=== PATIENT | male | born 1975 | race African-American/Black ===

== ENCOUNTER 2021-02-21 13:13 | Emergency (ER) | payer MEDICAID, MEDICARE ==
[2021-02-21 13:49] LABS: Actual Bicarbonate (HCO3v) 25 mEq/L (22-28); Base Excess -2.2 mEq/L (-2.0 to +3.0); Calcium, Ionized (venous) 1.24 mmol/L (1.16-1.32); Chloride (VBG) 99 mmol/L (98-106); Hemoglobin (Hb) 13.9 g/dL (13.1-17.2); Potassium (VBG) 3.85 mmol/L (3.70-5.30); Puncture Site Other Site; RapidComm Collect By CBN; Sodium 142.6 mmol/L (133-146)
[2021-02-21 13:51] LABS: #Monocytes 0.9 10x3/uL (0.0-1.1); #Neutrophils 5.2 10x3/uL (1.5-8.4); %Basophils 0.5 % (0.0-2.0); %Eosinophils 0.5 % (0.0-6.0); %Lymphocytes 30.6 % (18.0-47.0); %Monocytes 9.7 % (0.0-10.0); %Neutrophils 58.5 % (40.0-75.0); Hemoglobin 12.6 g/dL (13.5-17.5); Mean Corpuscular HGB CONC 32.5 g/dL (32.0-36.0); Mean Corpuscular Hemoglobin 25.2 pg (27.0-33.0); Mean Corpuscular Volume 77.6 fl (81.2-95.1); Mean Platelet Volume 12.1 fl (7.4-10.4); Platelet Count 403 10x3/uL (150-450); RBC Distribution Width 13.5 % (11.5-14.5); White Blood Cell (WBC) Count 8.8 10x3/uL (3.5-10.5)
[2021-02-21 14:02] LABS: Phosphorus 5.6 mg/dL (2.3-4.7)
[2021-02-21 14:04] LABS: ALT (SGPT) 43 U/L (8-55); AST (SGOT) 20 U/L (5-34); Albumin 4.5 g/dL (3.5-5.0); Alkaline Phosphatase 140 U/L (40-110); Anion Gap 22 mmol/L (10-20); BUN (Urea Nitrogen) 34 mg/dL (8.9-20.6); Bilirubin, Total 0.5 mg/dL (0.2-1.2); Calc. Creatinine Clearance 0 mL/min (70-130); Calcium 10.4 mg/dL (7.8-10.44); Carbon Dioxide 25 mmol/L (22-29); Chloride 99 mmol/L (98-107); Globulin 2.9 g/dL (2.4-3.5); Lipase 37 U/L (8-78); Potassium 3.9 mmol/L (3.5-5.1); Protein, Total 7.4 g/dL (6.0-8.3); Sodium 142 mmol/L (136-145)
[2021-02-21] MEDS ORDERED: INSULIN REGULAR IN 0.9 % NACL 100 UNIT/100 ML BAG ONE (14:05)
[2021-02-21] MEDS ORDERED: Insulin Regular 300 UNITS/3 ML VIAL ONE (14:05)
[2021-02-21] MEDS ORDERED: Ondansetron PF 4 MG/2 ML Vial ONE (14:06)
[2021-02-21 14:10] LABS: Acetaminophen Less than 6.0 mcg/mL (10.0-30.0); Alcohol Less than 10 mg/dL (Less than 10); Salicylate Less than 8.0 mg/dL (15.0-30.0)
[2021-02-21] MEDS ORDERED: NS 0.9% w/ 20 MEQ KCL 1,000 ML ONE (14:21)
[2021-02-21 14:25] LABS: Glucose 746 mg/dL (70-105)
[2021-02-21 15:30] LABS: Bilirubin Neg (Negative); Blood, Urine 10 (Negative); Clarity Clear (Clear); Glucose, Urine (Dipstick) >=1000 mg/dL (Negative); Ketone, Urine 15 mg/dL (Negative); Leukocyte Negative (Negative); Nitrite Negative (Negative); Protein, Urine (Dipstick) 30 mg/dl (Neg-Trace); Specific Gravity, Urine 1.015 (1.002-1.036); Urobilinogen Normal mg/dL (Less than 2)
[2021-02-21 15:38] LABS: Amphetamine Not Detected (NotDetected); Barbiturates Screen Not Detected (NotDetected); Benzodiazepine Screen Not Detected (NotDetected); Cocaine Metabolite Screen Not Detected (NotDetected); Methadone Not Detected (NotDetected); Methamphetamine Not Detected (NotDetected); Opiate Screen Not Detected (NotDetected); Oxycodone Screen Not Detected (NotDetected); Phencyclidine (PCP) Detected (NotDetected); THC/Cannabinoid Screen Not Detected (NotDetected); Tricyclic Screen Not Detected (NotDetected)
[2021-02-21 15:39] LABS: Bacteria/HPF None Seen HPF (None Seen); RBC/HPF 0-3 HPF (0-3); Squamous Epithelial 0-3 HPF (0-3); WBC/HPF 0-3 HPF (0-3)
[2021-02-21 16:05] LABS: SARS-CoV-2 NAA Rapid Test Not Detected (NotDetected)
== END 2021-02-21 15:30 | disposition short-term general hospital (02) ==
LOC: CSHERS 13:13
DX: E11.10 Type 2 diabetes mellitus with ketoacidosis without coma (principal); I24.9 Acute ischemic heart disease, unspecified; N17.9 Acute kidney failure, unspecified; I48.91 Unspecified atrial fibrillation; Z79.4 Long term (current) use of insulin; E11.9 Type 2 diabetes mellitus without complications; I10 Essential (primary) hypertension; F17.210 Nicotine dependence, cigarettes, uncomplicated
CPT/HCPCS: 0240U; 36416; 71045; 80053; 80306; 80307; 81003; 81015; 82010; 82805; 83605; 83690; 83735; 83930; 84100; 84484; 85025; 93005; 96365; 96368; 96375; 96376; J1815; J2405; J3480

== ENCOUNTER 2021-03-10 12:24 | Emergency (ER) | payer MEDICAID, OTHER ==
[2021-03-10] MEDS ORDERED: Lidocaine 1% w/Epinephrine 1:100K 20 ML VIAL ONE (13:34)
[2021-03-10] MEDS ORDERED: Boostrix 0.5 ML (Tdap) VIAL ONE (13:56)
[2021-03-10 15:25] LABS: #Eosinphils 0.2 10x3/uL (0.0-0.5); #Monocytes 0.9 10x3/uL (0.0-1.1); #Neutrophils 8.4 10x3/uL (1.5-8.4); %Basophils 0.4 % (0.0-2.0); %Eosinophils 1.4 % (0.0-6.0); %Lymphocytes 14.1 % (18.0-47.0); %Monocytes 7.6 % (0.0-10.0); %Neutrophils 75.8 % (40.0-75.0); Hemoglobin 10.3 g/dL (13.5-17.5); Mean Corpuscular HGB CONC 31.9 g/dL (32.0-36.0); Mean Corpuscular Hemoglobin 24.5 pg (27.0-33.0); Mean Corpuscular Volume 76.7 fl (81.2-95.1); Mean Platelet Volume 10.9 fl (7.4-10.4); Platelet Count 365 10x3/uL (150-450); RBC Distribution Width 13.4 % (11.5-14.5); Red Blood Cell (RBC) Count 4.21 10x6/uL (4.32-5.72); White Blood Cell (WBC) Count 11.1 10x3/uL (3.5-10.5)
[2021-03-10 15:37] LABS: ALT (SGPT) 21 U/L (8-55); AST (SGOT) 8 U/L (5-34); Albumin 3.6 g/dL (3.5-5.0); Alkaline Phosphatase 139 U/L (40-110); Anion Gap 16 mmol/L (10-20); BUN (Urea Nitrogen) 16 mg/dL (8.9-20.6); Bilirubin, Total 0.4 mg/dL (0.2-1.2); Calc. Creatinine Clearance 0 mL/min (70-130); Calcium 9.2 mg/dL (7.8-10.44); Carbon Dioxide 25 mmol/L (22-29); Chloride 103 mmol/L (98-107); Globulin 3.3 g/dL (2.4-3.5); Glucose 512 mg/dL (70-105); Potassium 4.7 mmol/L (3.5-5.1); Protein, Total 6.9 g/dL (6.0-8.3); Sodium 139 mmol/L (136-145)
== END 2021-03-10 15:26 | disposition home or self-care (01) ==
LOC: CSHERS 12:24
DX: L02.811 Cutaneous abscess of head [any part, except face] (principal); E11.9 Type 2 diabetes mellitus without complications; I10 Essential (primary) hypertension; I48.91 Unspecified atrial fibrillation; F17.210 Nicotine dependence, cigarettes, uncomplicated; Z23 Encounter for immunization
CPT/HCPCS: 10060; 36415; 36416; 80053; 83605; 85025; 90471; 90715; 94760

== ENCOUNTER 2021-04-07 16:43 | Emergency (ER) | payer OTHER ==
[2021-04-07 17:38] LABS: #Eosinphils 0.2 10x3/uL (0.0-0.5); #Monocytes 0.9 10x3/uL (0.0-1.1); #Neutrophils 9.7 10x3/uL (1.5-8.4); %Basophils 0.3 % (0.0-2.0); %Eosinophils 1.2 % (0.0-6.0); %Lymphocytes 9.2 % (18.0-47.0); %Monocytes 7.7 % (0.0-10.0); Hemoglobin 10.7 g/dL (13.5-17.5); Mean Corpuscular HGB CONC 32.3 g/dL (32.0-36.0); Mean Corpuscular Hemoglobin 24.7 pg (27.0-33.0); Mean Corpuscular Volume 76.4 fl (81.2-95.1); Mean Platelet Volume 11.3 fl (7.4-10.4); Platelet Count 351 10x3/uL (150-450); RBC Distribution Width 13.6 % (11.5-14.5); Red Blood Cell (RBC) Count 4.33 10x6/uL (4.32-5.72)
[2021-04-07 17:59] LABS: THC/Cannabinoid Screen Not Detected (NotDetected)
[2021-04-07 18:00] LABS: Amphetamine Not Detected (NotDetected); Barbiturates Screen Not Detected (NotDetected); Benzodiazepine Screen Not Detected (NotDetected); Cocaine Metabolite Screen Not Detected (NotDetected); Methadone Not Detected (NotDetected); Methamphetamine Not Detected (NotDetected); Opiate Screen Not Detected (NotDetected); Oxycodone Screen Not Detected (NotDetected); Phencyclidine (PCP) Detected (NotDetected); Tricyclic Screen Not Detected (NotDetected)
[2021-04-07 18:01] LABS: Acetaminophen Less than 6.0 mcg/mL (10.0-30.0); Alcohol Less than 10 mg/dL (Less than 10); Salicylate Less than 8.0 mg/dL (15.0-30.0)
[2021-04-07 18:02] LABS: ALT (SGPT) 19 U/L (8-55); AST (SGOT) 39 U/L (5-34); Albumin 3.6 g/dL (3.5-5.0); Alkaline Phosphatase 153 U/L (40-110); Anion Gap 15 mmol/L (10-20); BUN (Urea Nitrogen) 10 mg/dL (8.9-20.6); Bilirubin, Total 0.6 mg/dL (0.2-1.2); Calc. Creatinine Clearance 0 mL/min (70-130); Carbon Dioxide 29 mmol/L (22-29); Chloride 97 mmol/L (98-107); Glucose 482 mg/dL (70-105); Potassium 4.3 mmol/L (3.5-5.1); Protein, Total 6.6 g/dL (6.0-8.3); Sodium 137 mmol/L (136-145)
== END 2021-04-07 19:02 | disposition home or self-care (01) ==
LOC: CSHERS 16:43
DX: F16.10 Hallucinogen abuse, uncomplicated (principal); E11.9 Type 2 diabetes mellitus without complications; I10 Essential (primary) hypertension; I48.91 Unspecified atrial fibrillation; F17.210 Nicotine dependence, cigarettes, uncomplicated; V89.2XXA Person injured in unspecified motor-vehicle accident, traffic, initial encounter
CPT/HCPCS: 36415; 36416; 70450; 72125; 80053; 80306; 80307; 84484; 85025; 93005; G0390

== ENCOUNTER 2021-09-28 05:50 | Emergency (ER) | payer OTHER ==
[2021-09-28 07:08] LABS: #Eosinphils 0.1 10x3/uL (0.0-0.5); #Monocytes 0.4 10x3/uL (0.0-1.1); #Neutrophils 3.5 10x3/uL (1.5-8.4); %Basophils 0.3 % (0.0-2.0); %Eosinophils 0.8 % (0.0-6.0); %Lymphocytes 33.9 % (18.0-47.0); %Monocytes 5.8 % (0.0-10.0); %Neutrophils 58.9 % (40.0-75.0); Hemoglobin 11.2 g/dL (13.5-17.5); Mean Corpuscular HGB CONC 31.7 g/dL (32.0-36.0); Mean Corpuscular Hemoglobin 25.1 pg (27.0-33.0); Mean Corpuscular Volume 79.1 fl (81.2-95.1); Mean Platelet Volume 12.1 fl (7.4-10.4); Platelet Count 315 10x3/uL (150-450); RBC Distribution Width 12.9 % (11.5-14.5); Red Blood Cell (RBC) Count 4.46 10x6/uL (4.32-5.72)
[2021-09-28 07:15] LABS: ALT (SGPT) 30 U/L (8-55); AST (SGOT) 18 U/L (5-34); Acetaminophen Less than 6.0 mcg/mL (10.0-30.0); Albumin 4.1 g/dL (3.5-5.0); Alcohol Less than 10 mg/dL (Less than 10); Alkaline Phosphatase 126 U/L (40-110); Anion Gap 16 mmol/L (10-20); BUN (Urea Nitrogen) 25 mg/dL (8.9-20.6); Bilirubin, Total 0.4 mg/dL (0.2-1.2); Calc. Creatinine Clearance 0 mL/min (70-130); Calcium 9.3 mg/dL (7.8-10.44); Carbon Dioxide 26 mmol/L (22-29); Chloride 104 mmol/L (98-107); Globulin 3.2 g/dL (2.4-3.5); Glucose 432 mg/dL (70-105); Potassium 4.4 mmol/L (3.5-5.1); Protein, Total 7.3 g/dL (6.0-8.3); Salicylate Less than 8.0 mg/dL (15.0-30.0); Sodium 142 mmol/L (136-145)
[2021-09-28] MEDS ORDERED: Insulin Regular 300 UNITS/3 ML VIAL ONE (07:33)
== END 2021-09-28 08:40 | disposition home or self-care (01) ==
LOC: CSHERS 05:50
DX: E11.65 Type 2 diabetes mellitus with hyperglycemia (principal); I10 Essential (primary) hypertension; I48.91 Unspecified atrial fibrillation; F17.210 Nicotine dependence, cigarettes, uncomplicated
CPT/HCPCS: 36416; 80053; 80307; 85025; 93005; 93010; 96374; J1815

== ENCOUNTER 2022-01-23 10:09 | Observation (INO) | payer OTHER ==
[2022-01-23 10:45] LABS: ALT (SGPT) 9 U/L (8-55); AST (SGOT) 8 U/L (5-34); Albumin 3.9 g/dL (3.5-5.0); Alkaline Phosphatase 134 U/L (40-110); Anion Gap 18 mmol/L (10-20); BUN (Urea Nitrogen) 23 mg/dL (8.9-20.6); Bilirubin, Total 0.3 mg/dL (0.2-1.2); Calc. Creatinine Clearance 0 mL/min (70-130); Calcium 9.4 mg/dL (7.8-10.44); Carbon Dioxide 25 mmol/L (22-29); Chloride 97 mmol/L (98-107); Potassium 4.4 mmol/L (3.5-5.1); Protein, Total 6.9 g/dL (6.0-8.3); Sodium 136 mmol/L (136-145)
[2022-01-23 10:46] LABS: #Eosinphils 0.1 10x3/uL (0.0-0.5); #Monocytes 0.6 10x3/uL (0.0-1.1); #Neutrophils 3.9 10x3/uL (1.5-8.4); %Basophils 0.5 % (0.0-2.0); %Monocytes 7.8 % (0.0-10.0); %Neutrophils 53.4 % (40.0-75.0); Hemoglobin 11.3 g/dL (13.5-17.5); Mean Corpuscular HGB CONC 32.4 g/dL (32.0-36.0); Mean Corpuscular Hemoglobin 24.8 pg (27.0-33.0); Mean Corpuscular Volume 76.5 fl (81.2-95.1); Mean Platelet Volume 11.5 fl (7.4-10.4); Platelet Count 372 10x3/uL (150-450); RBC Distribution Width 13.2 % (11.5-14.5); Red Blood Cell (RBC) Count 4.56 10x6/uL (4.32-5.72); White Blood Cell (WBC) Count 7.3 10x3/uL (3.5-10.5)
[2022-01-23 11:00] LABS: Glucose 655 mg/dL (70-105)
[2022-01-23 11:22] LABS: Microcytosis SLIGHT = 6-15 cells (100X) (0-5/hpf)
[2022-01-23 11:23] LABS: Platelet Clumps SLIGHT; Platelet Morphology Comment Appears Adequate
[2022-01-23] MEDS ORDERED: Acetaminophen 325 MG TAB PO PRN (13:30)
[2022-01-23] MEDS ORDERED: Ondansetron PF 4 MG/2 ML Vial IVP PRN (13:30)
[2022-01-23] MEDS ORDERED: Acetaminophen 650 MG Suppository PR PRN (13:30)
[2022-01-23] MEDS ORDERED: Ondansetron ODT 4 MG TAB PO PRN (13:30)
[2022-01-23] MEDS ORDERED: Dextrose 5% in Water 1,000 ML IV PRN (13:32)
[2022-01-23] MEDS ORDERED: Dextrose 50% Abboject 50 ML SYRINGE SLOW IVP PRN (13:32)
[2022-01-23] MEDS ORDERED: Insulin Regular 300 UNITS/3 ML VIAL SC PRN (13:32)
[2022-01-23 13:33] LABS: Lactic Acid 0.8 mmol/L (0.5-2.2)
[2022-01-23 13:44] LABS: Actual Bicarbonate (HCO3v) 26 mEq/L (22-28); Base Excess -1.3 mEq/L (-2.0 to +3.0); Calcium, Ionized (venous) 1.13 mmol/L (1.16-1.32); Chloride (VBG) 98 mmol/L (98-106); Hemoglobin (Hb) 11.2 g/dL (13.1-17.2); Potassium (VBG) 4.01 mmol/L (3.70-5.30); Puncture Site Other Site; RapidComm Collect By LAB; Sodium 131.1 mmol/L (133-146)
[2022-01-23] MEDS ORDERED: Lantus 1000 UNITS/10 ML VIAL SC SCH (13:45)
[2022-01-23 14:59] LABS: Amphetamine Not Detected (NotDetected); Barbiturates Screen Not Detected (NotDetected); Benzodiazepine Screen Not Detected (NotDetected); Cocaine Metabolite Screen Not Detected (NotDetected); Methadone Not Detected (NotDetected); Methamphetamine Not Detected (NotDetected); Opiate Screen Not Detected (NotDetected); Oxycodone Screen Not Detected (NotDetected); Phencyclidine (PCP) Detected (NotDetected); THC/Cannabinoid Screen Not Detected (NotDetected); Tricyclic Screen Not Detected (NotDetected)
[2022-01-23] MEDS: Sodium Chloride 0.9% 1,000 ML IV SCH ×2 (15:03→22:42)
[2022-01-23 15:17] VITALS: BMI 21.4
[2022-01-23] MEDS: Insulin Regular 300 UNITS/3 ML VIAL SC PRN ×2 (17:14→22:29)
[2022-01-23] MEDS: HumuLIN 70/30 (300 UNITS/3 ML VIAL) SC SCH (22:41)
[2022-01-23 22:43] LABS: SARS-CoV-2 NAA Rapid Test Not Detected (NotDetected)
[2022-01-23] MEDS ORDERED: HumuLIN 70/30 (300 UNITS/3 ML VIAL) ONE (22:44)
[2022-01-24 04:30] LABS: #Eosinphils 0.1 10x3/uL (0.0-0.5); #Monocytes 0.5 10x3/uL (0.0-1.1); #Neutrophils 2.2 10x3/uL (1.5-8.4); %Basophils 0.6 % (0.0-2.0); %Eosinophils 1.5 % (0.0-6.0); %Lymphocytes 47.5 % (18.0-47.0); %Monocytes 9.1 % (0.0-10.0); %Neutrophils 41.1 % (40.0-75.0); Hemoglobin 8.7 g/dL (13.5-17.5); Mean Corpuscular HGB CONC 32.6 g/dL (32.0-36.0); Mean Corpuscular Hemoglobin 25.1 pg (27.0-33.0); Mean Corpuscular Volume 76.9 fl (81.2-95.1); Mean Platelet Volume 10.7 fl (7.4-10.4); Platelet Count 299 10x3/uL (150-450); RBC Distribution Width 13.4 % (11.5-14.5); Red Blood Cell (RBC) Count 3.47 10x6/uL (4.32-5.72); White Blood Cell (WBC) Count 5.3 10x3/uL (3.5-10.5)
[2022-01-24 04:46] LABS: Anion Gap 10 mmol/L (10-20); BUN (Urea Nitrogen) 16 mg/dL (8.9-20.6); Calc. Creatinine Clearance 80 mL/min (70-130); Calcium 8.2 mg/dL (7.8-10.44); Carbon Dioxide 26 mmol/L (22-29); Chloride 110 mmol/L (98-107); Glucose 103 mg/dL (70-105); Potassium 3.9 mmol/L (3.5-5.1); Sodium 142 mmol/L (136-145)
[2022-01-24 08:24] VITALS: BP 143/90; TEMP 98.7
[2022-01-24] MEDS: HumuLIN 70/30 (300 UNITS/3 ML VIAL) SC SCH (08:34)
[2022-01-24] MEDS: Sodium Chloride 0.9% 1,000 ML IV SCH (09:06)
== END 2022-01-24 10:55 | disposition home or self-care (01) ==
LOC: CSHERS 10:09 → CSHTELE 13:51
PROVIDERS: ADMIT Family Medicine; ATTEND Family Medicine
DX: R55 Syncope and collapse (principal); I48.0 Paroxysmal atrial fibrillation; I95.9 Hypotension, unspecified; E11.65 Type 2 diabetes mellitus with hyperglycemia; E11.40 Type 2 diabetes mellitus with diabetic neuropathy, unspecified; I10 Essential (primary) hypertension; F16.10 Hallucinogen abuse, uncomplicated; Z79.4 Long term (current) use of insulin; Z79.899 Other long term (current) drug therapy; E78.5 Hyperlipidemia, unspecified; F17.210 Nicotine dependence, cigarettes, uncomplicated; N17.9 Acute kidney failure, unspecified; Z20.822 Contact with and (suspected) exposure to COVID-19
CPT/HCPCS: 36415; 36416; 80048; 80053; 80306; 82010; 82805; 83605; 84484; 85025; 87040; 87086; 93005; 93010; 94760; G0378; J1815; J7050; U0002

== ENCOUNTER 2022-03-30 00:37 | Emergency (ER) | payer OTHER | END 2022-03-30 02:48 | disposition home or self-care (01) | LOC: CSHERS 00:37 | DX: E11.65 Type 2 diabetes mellitus with hyperglycemia (principal); I10 Essential (primary) hypertension; I48.91 Unspecified atrial fibrillation; F17.210 Nicotine dependence, cigarettes, uncomplicated; Z79.4 Long term (current) use of insulin; Z79.899 Other long term (current) drug therapy | CPT/HCPCS: 36416; 99285 ==

== ENCOUNTER 2022-06-17 23:00 | Emergency (ER) | payer OTHER ==
[2022-06-17 23:31] LABS: #Monocytes 0.5 10x3/uL (0.0-1.1); #Neutrophils 6.9 10x3/uL (1.5-8.4); %Basophils 0.4 % (0.0-2.0); %Eosinophils 0.1 % (0.0-6.0); %Monocytes 6.2 % (0.0-10.0); %Neutrophils 81.5 % (40.0-75.0); Hemoglobin 8.6 g/dL (13.5-17.5); Mean Corpuscular HGB CONC 32.8 g/dL (32.0-36.0); Mean Corpuscular Volume 76.2 fl (81.2-95.1); Platelet Count 287 10x3/uL (150-450); RBC Distribution Width 13.6 % (11.5-14.5); Red Blood Cell (RBC) Count 3.44 10x6/uL (4.32-5.72); White Blood Cell (WBC) Count 8.4 10x3/uL (3.5-10.5)
[2022-06-17 23:50] LABS: ALT (SGPT) 6 U/L (8-55); AST (SGOT) 11 U/L (5-34); Acetaminophen Less than 10.0 mcg/mL (10.0-30.0); Albumin 3.1 g/dL (3.5-5.0); Alcohol Less than 10 mg/dL (Less than 10); Alkaline Phosphatase 105 U/L (40-110); Anion Gap 17 mmol/L (10-20); BUN (Urea Nitrogen) 19 mg/dL (8.9-20.6); Bilirubin, Total 0.6 mg/dL (0.2-1.2); Calc. Creatinine Clearance 0 mL/min (70-130); Calcium 8.3 mg/dL (7.8-10.44); Carbon Dioxide 20 mmol/L (22-29); Chloride 108 mmol/L (98-107); Estimated GFR 43; Globulin 2.1 g/dL (2.4-3.5); Glucose 237 mg/dL (70-105); Potassium 3.1 mmol/L (3.5-5.1); Protein, Total 5.2 g/dL (6.0-8.3); Salicylate Less than 8.0 mg/dL (15.0-30.0); Sodium 142 mmol/L (136-145)
[2022-06-18 00:32] LABS: Bilirubin Neg (Negative); Blood, Urine 150 (Negative); Clarity Clear (Clear); Glucose, Urine (Dipstick) >=1000 mg/dL (Negative); Ketone, Urine 50 mg/dL (Negative); Leukocyte Negative (Negative); Nitrite Negative (Negative); Protein, Urine (Dipstick) 500 mg/dl (Neg-Trace); Specific Gravity, Urine 1.025 (1.002-1.036); Urobilinogen Normal mg/dL (Less than 2)
[2022-06-18 00:40] LABS: Amphetamine Not Detected (NotDetected); Barbiturates Screen Not Detected (NotDetected); Benzodiazepine Screen Not Detected (NotDetected); Cocaine Metabolite Screen Not Detected (NotDetected); Methadone Not Detected (NotDetected); Methamphetamine Not Detected (NotDetected); Opiate Screen Not Detected (NotDetected); Oxycodone Screen Not Detected (NotDetected); Phencyclidine (PCP) Detected (NotDetected); THC/Cannabinoid Screen Not Detected (NotDetected); Tricyclic Screen Not Detected (NotDetected)
[2022-06-18 00:41] LABS: Bacteria/HPF Rare-Few HPF (None Seen); Squamous Epithelial 0-3 HPF (0-3); WBC/HPF 0-3 HPF (0-3)
== END 2022-06-18 06:25 | disposition home or self-care (01) ==
LOC: CSHERS 23:00
DX: F16.10 Hallucinogen abuse, uncomplicated (principal); R41.82 Altered mental status, unspecified; I10 Essential (primary) hypertension; E11.9 Type 2 diabetes mellitus without complications; I48.91 Unspecified atrial fibrillation; F17.210 Nicotine dependence, cigarettes, uncomplicated
CPT/HCPCS: 51701; 70450; 71045; 80053; 80306; 80307; 81003; 81015; 82550; 83605; 84484; 85025; 93005

== ENCOUNTER 2022-07-26 10:35 | Inpatient (IN) | payer OTHER ==
[2022-07-26 11:57] LABS: ALT (SGPT) 18 U/L (8-55); AST (SGOT) 16 U/L (5-34); Albumin 3.8 g/dL (3.5-5.0); Alkaline Phosphatase 129 U/L (40-110); Anion Gap 15 mmol/L (10-20); BUN (Urea Nitrogen) 34 mg/dL (8.9-20.6); Bilirubin, Total 0.2 mg/dL (0.2-1.2); CK (CPK) 85 U/L (30-200); Calc. Creatinine Clearance 0 mL/min (70-130); Calcium 9.2 mg/dL (7.8-10.44); Carbon Dioxide 24 mmol/L (22-29); Chloride 106 mmol/L (98-107); Estimated GFR 38; Globulin 2.7 g/dL (2.4-3.5); Glucose 406 mg/dL (70-105); Potassium 4.2 mmol/L (3.5-5.1); Protein, Total 6.5 g/dL (6.0-8.3); Sodium 141 mmol/L (136-145)
[2022-07-26 12:14] LABS: Hemoglobin 10.7 g/dL (13.5-17.5); Mean Corpuscular Volume 75.7 fl (81.2-95.1); Mean Platelet Volume 11.3 fl (7.4-10.4); Platelet Count 246 10x3/uL (150-450); RBC Distribution Width 14.6 % (11.5-14.5); Red Blood Cell (RBC) Count 4.28 10x6/uL (4.32-5.72); White Blood Cell (WBC) Count 8.5 10x3/uL (3.5-10.5)
[2022-07-26 12:15] LABS: #Monocytes 0.6 10x3/uL (0.0-1.1); #Neutrophils 5.7 10x3/uL (1.5-8.4); %Basophils 0.4 % (0.0-2.0); %Eosinophils 0.7 % (0.0-6.0); %Lymphocytes 25.6 % (18.0-47.0); %Monocytes 6.6 % (0.0-10.0); %Neutrophils 66.5 % (40.0-75.0)
[2022-07-26 12:16] LABS: CKMB 1.1 ng/mL (0-6.6)
[2022-07-26] MEDS ORDERED: Fentanyl 100 MCG/2 ML VIAL ONE (13:01)
[2022-07-26 13:41] LABS: Bilirubin Neg (Negative); Blood, Urine 25 (Negative); Glucose, Urine (Dipstick) >=1000 mg/dL (Negative); Ketone, Urine Negative (Negative); Leukocyte Negative (Negative); Nitrite Negative (Negative); Protein, Urine (Dipstick) 100 mg/dl (Neg-Trace); Specific Gravity, Urine 1.015 (1.002-1.036); Urobilinogen Normal mg/dL (Less than 2)
[2022-07-26 13:48] LABS: Clarity Clear (Clear)
[2022-07-26 13:57] LABS: Bacteria/HPF None Seen HPF (None Seen); RBC/HPF None Seen HPF (0-3); Squamous Epithelial 0-3 HPF (0-3); WBC/HPF None Seen HPF (0-3)
[2022-07-26] MEDS ORDERED: Ondansetron PF 4 MG/2 ML Vial IVP PRN (16:50)
[2022-07-26] MEDS ORDERED: Acetaminophen 325 MG TAB PO PRN (16:50)
[2022-07-26] MEDS ORDERED: Ondansetron ODT 4 MG TAB PO PRN (16:50)
[2022-07-26] MEDS ORDERED: Docusate 100 MG CAP PO PRN (16:53)
[2022-07-26] MEDS ORDERED: hydrALAZINE 20 MG/ML VIAL SLOW IVP PRN (16:53)
[2022-07-26] MEDS ORDERED: HumaLOG 300 UNITS/3 ML VIAL SC PRN (16:54)
[2022-07-26] MEDS ORDERED: Dextrose 50% Abboject 50 ML SYRINGE SLOW IVP PRN (16:54)
[2022-07-26] MEDS ORDERED: Dextrose 5% in Water 1,000 ML IV PRN (16:54)
[2022-07-26] MEDS ORDERED: Electrolyte Replacement Protocol 1 EACH FS PRN (17:00)
[2022-07-26 17:01] LABS: Troponin I 0.028 ng/mL (< 0.028)
[2022-07-26 19:45] LABS: Troponin I 0.024 ng/mL (< 0.028)
[2022-07-26 20:06] VITALS: BMI 22.1
[2022-07-26] MEDS: Atorvastatin Calcium 40 MG TAB PO SCH (20:58)
[2022-07-26] MEDS ORDERED: HYDROcodone/Acetaminophen 10/325 mg Tablet PO SCH (21:00)
[2022-07-26] MEDS: Heparin 5,000 UNITS/ML VIAL SC SCH (21:00)
[2022-07-26] MEDS ORDERED: HYDROcodone/Acetaminophen 10/325 mg Tablet PO PRN (21:09)
[2022-07-26] MEDS ORDERED: Magnesium 2 GM/50 ML(in water) 2 GM in Premix Bag 1 BAG IVPB SCH (22:00)
[2022-07-26 23:15] LABS: Amphetamine Not Detected (NotDetected); Barbiturates Screen Not Detected (NotDetected); Benzodiazepine Screen Not Detected (NotDetected); Cocaine Metabolite Screen Not Detected (NotDetected); Methadone Not Detected (NotDetected); Methamphetamine Not Detected (NotDetected); Opiate Screen Not Detected (NotDetected); Oxycodone Screen Not Detected (NotDetected); Phencyclidine (PCP) Detected (NotDetected); THC/Cannabinoid Screen Not Detected (NotDetected); Tricyclic Screen Not Detected (NotDetected)
[2022-07-27 04:53] LABS: #Eosinphils 0.1 10x3/uL (0.0-0.5); #Monocytes 0.5 10x3/uL (0.0-1.1); #Neutrophils 3.7 10x3/uL (1.5-8.4); %Basophils 0.5 % (0.0-2.0); %Eosinophils 1.4 % (0.0-6.0); %Lymphocytes 35.8 % (18.0-47.0); %Monocytes 7.2 % (0.0-10.0); %Neutrophils 54.8 % (40.0-75.0); Hemoglobin 9.1 g/dL (13.5-17.5); Mean Corpuscular HGB CONC 31.6 g/dL (32.0-36.0); Mean Corpuscular Hemoglobin 24.3 pg (27.0-33.0); Mean Platelet Volume 11.3 fl (7.4-10.4); Platelet Count 336 10x3/uL (150-450); RBC Distribution Width 13.9 % (11.5-14.5); Red Blood Cell (RBC) Count 3.74 10x6/uL (4.32-5.72); White Blood Cell (WBC) Count 6.7 10x3/uL (3.5-10.5)
[2022-07-27 05:17] LABS: Anion Gap 14 mmol/L (10-20); BUN (Urea Nitrogen) 26 mg/dL (8.9-20.6); Calc. Creatinine Clearance 68 mL/min (70-130); Calcium 8.8 mg/dL (7.8-10.44); Carbon Dioxide 24 mmol/L (22-29); Chloride 109 mmol/L (98-107); Estimated GFR 72; Glucose 168 mg/dL (70-105); Magnesium 2.4 mg/dL (1.6-2.6); Potassium 3.7 mmol/L (3.5-5.1); Sodium 143 mmol/L (136-145)
[2022-07-27] MEDS: HumaLOG 300 UNITS/3 ML VIAL SC PRN ×2 (06:14→11:47)
[2022-07-27] MEDS: Aspirin 81 mg Enteric Coated Tablet PO SCH (08:34)
[2022-07-27] MEDS: Heparin 5,000 UNITS/ML VIAL SC SCH ×3 (10:54→21:51)
[2022-07-27] MEDS ORDERED: ALPRAZolam 0.25 MG TAB PO PRN (12:30)
[2022-07-27 12:50] LABS: Hemoglobin A1c 10.6 % (4.0-6.0)
[2022-07-27] MEDS: HYDROcodone/Acetaminophen 5/325 mg Tablet PO PRN ×3 (14:04→22:43)
[2022-07-27] MEDS: HumuLIN 70/30 (300 UNITS/3 ML VIAL) SC SCH (16:02)
[2022-07-27] MEDS: Atorvastatin Calcium 40 MG TAB PO SCH (21:51)
[2022-07-28 04:24] LABS: #Eosinphils 0.1 10x3/uL (0.0-0.5); #Monocytes 0.4 10x3/uL (0.0-1.1); #Neutrophils 3.3 10x3/uL (1.5-8.4); %Basophils 0.3 % (0.0-2.0); %Monocytes 6.9 % (0.0-10.0); %Neutrophils 54.5 % (40.0-75.0); Hemoglobin 9.3 g/dL (13.5-17.5); Mean Corpuscular HGB CONC 32.9 g/dL (32.0-36.0); Mean Corpuscular Hemoglobin 24.7 pg (27.0-33.0); Mean Corpuscular Volume 75.1 fl (81.2-95.1); Platelet Count 326 10x3/uL (150-450); RBC Distribution Width 14.5 % (11.5-14.5); Red Blood Cell (RBC) Count 3.77 10x6/uL (4.32-5.72); White Blood Cell (WBC) Count 6.1 10x3/uL (3.5-10.5)
[2022-07-28 04:33] LABS: Anion Gap 10 mmol/L (10-20); BUN (Urea Nitrogen) 22 mg/dL (8.9-20.6); Calc. Creatinine Clearance 68 mL/min (70-130); Calcium 8.8 mg/dL (7.8-10.44); Carbon Dioxide 26 mmol/L (22-29); Chloride 107 mmol/L (98-107); Estimated GFR 72; Glucose 216 mg/dL (70-105); Potassium 4.1 mmol/L (3.5-5.1); Sodium 139 mmol/L (136-145)
[2022-07-28] MEDS: HYDROcodone/Acetaminophen 5/325 mg Tablet PO PRN ×3 (05:28→20:52)
[2022-07-28] MEDS: HumaLOG 300 UNITS/3 ML VIAL SC PRN ×3 (06:41→18:13)
[2022-07-28] MEDS ORDERED: Furosemide 40 MG TAB PO SCH (09:00)
[2022-07-28] MEDS: Aspirin 81 mg Enteric Coated Tablet PO SCH (09:18)
[2022-07-28] MEDS: Lisinopril 5 MG TAB PO SCH (09:18)
[2022-07-28] MEDS: HumuLIN 70/30 (300 UNITS/3 ML VIAL) SC SCH ×2 (09:20→18:12)
[2022-07-28] MEDS: Heparin 5,000 UNITS/ML VIAL SC SCH ×3 (09:21→20:55)
[2022-07-28] MEDS ORDERED: Morphine 4 MG/ML VIAL SLOW IVP PRN (11:04)
[2022-07-28] MEDS ORDERED: Ketorolac Tromethamine 30 MG/ML VIAL IVP PRN (11:05)
[2022-07-28] MEDS ORDERED: Sodium Chloride 0.9% 1,000 ML IV SCH (11:15)
[2022-07-28] MEDS: Gabapentin 100 MG CAP PO SCH ×2 (15:54→20:51)
[2022-07-28] MEDS ORDERED: Polyethylene Glycol 3350 17 GM Packet PO PRN (16:15)
[2022-07-28] MEDS: Senokot S 8.6-50 MG TAB PO SCH (20:49)
[2022-07-28] MEDS: Atorvastatin Calcium 40 MG TAB PO SCH (20:49)
[2022-07-28] MEDS: Pregabalin 75 MG CAP PO SCH (20:49)
[2022-07-29] MEDS: HumaLOG 300 UNITS/3 ML VIAL SC PRN ×4 (00:33→20:15)
[2022-07-29] MEDS: HYDROcodone/Acetaminophen 5/325 mg Tablet PO PRN (06:03)
[2022-07-29 08:00] LABS: Bilirubin Neg (Negative); Blood, Urine 10 (Negative); Clarity Clear (Clear); Glucose, Urine (Dipstick) >=1000 mg/dL (Negative); Ketone, Urine Negative (Negative); Leukocyte Negative (Negative); Nitrite Negative (Negative); Protein, Urine (Dipstick) 30 mg/dl (Neg-Trace); Specific Gravity, Urine 1.015 (1.002-1.036); Urobilinogen Normal mg/dL (Less than 2)
[2022-07-29 08:27] LABS: RBC/HPF 0-3 HPF (0-3)
[2022-07-29 08:31] LABS: Bacteria/HPF None Seen HPF (None Seen); Calcium Oxalate Crystals Rare HPF (None Seen); Squamous Epithelial 0-3 HPF (0-3); WBC/HPF None Seen HPF (0-3)
[2022-07-29 08:32] LABS: Urine Culture Reflex No No
[2022-07-29] MEDS: Pregabalin 75 MG CAP PO SCH ×2 (08:39→20:03)
[2022-07-29] MEDS: Gabapentin 100 MG CAP PO SCH ×3 (08:40→20:28)
[2022-07-29] MEDS: Amlodipine 5 MG TAB PO SCH (08:40)
[2022-07-29] MEDS: Senokot S 8.6-50 MG TAB PO SCH ×3 (08:40→20:29)
[2022-07-29] MEDS: Lisinopril 5 MG TAB PO SCH (08:41)
[2022-07-29] MEDS: HumuLIN 70/30 (300 UNITS/3 ML VIAL) SC SCH ×2 (08:41→17:24)
[2022-07-29] MEDS: Aspirin 81 mg Enteric Coated Tablet PO SCH (08:41)
[2022-07-29] MEDS: Metoprolol Tartrate 25 MG TAB PO SCH (08:44)
[2022-07-29] MEDS: Heparin 5,000 UNITS/ML VIAL SC SCH ×3 (11:05→20:04)
[2022-07-29] MEDS: HYDROcodone/Acetaminophen 5/325 mg Tablet PO SCH ×2 (11:08→17:23)
[2022-07-29] MEDS: Atorvastatin Calcium 40 MG TAB PO SCH (20:03)
[2022-07-30] MEDS: HYDROcodone/Acetaminophen 5/325 mg Tablet PO SCH ×3 (05:50→11:51)
[2022-07-30] MEDS: HumaLOG 300 UNITS/3 ML VIAL SC PRN ×2 (05:51→11:53)
[2022-07-30] MEDS: HumuLIN 70/30 (300 UNITS/3 ML VIAL) SC SCH ×2 (09:01→11:54)
[2022-07-30] MEDS: Heparin 5,000 UNITS/ML VIAL SC SCH (09:02)
[2022-07-30] MEDS: Gabapentin 100 MG CAP PO SCH (09:03)
[2022-07-30] MEDS: Amlodipine 5 MG TAB PO SCH (09:03)
[2022-07-30] MEDS: Pregabalin 75 MG CAP PO SCH (09:03)
[2022-07-30] MEDS: Lisinopril 5 MG TAB PO SCH (09:03)
[2022-07-30] MEDS: Senokot S 8.6-50 MG TAB PO SCH (09:04)
[2022-07-30] MEDS: Metoprolol Tartrate 25 MG TAB PO SCH (09:04)
[2022-07-30] MEDS: Aspirin 81 mg Enteric Coated Tablet PO SCH (09:04)
[2022-07-30 12:57] VITALS: BP 151/87; TEMP 98
== END 2022-07-30 12:45 | disposition home or self-care (01) | DRG 74 ==
LOC: CSHERS 10:35 → CSHTELE 19:52 → OBSVTOIN 07-28 11:08
PROVIDERS: ADMIT Student in an Organized Health Care Education/Training Program; ATTEND Hospitalist
DX: E11.42 Type 2 diabetes mellitus with diabetic polyneuropathy (principal); N17.9 Acute kidney failure, unspecified; I10 Essential (primary) hypertension; E78.5 Hyperlipidemia, unspecified; I48.91 Unspecified atrial fibrillation; G89.29 Other chronic pain; E11.65 Type 2 diabetes mellitus with hyperglycemia; N18.30 Chronic kidney disease, stage 3 unspecified; E11.22 Type 2 diabetes mellitus with diabetic chronic kidney disease; D63.1 Anemia in chronic kidney disease; F41.9 Anxiety disorder, unspecified; F32.A Depression, unspecified; F17.210 Nicotine dependence, cigarettes, uncomplicated; F16.10 Hallucinogen abuse, uncomplicated; K59.00 Constipation, unspecified; Z20.822 Contact with and (suspected) exposure to COVID-19; Z79.4 Long term (current) use of insulin; Z79.899 Other long term (current) drug therapy; Z98.890 Other specified postprocedural states
CPT/HCPCS: 36415; 36416; 71045; 72131; 72170; 74176; 80048; 80053; 80306; 81001; 81003; 81015; 82550; 82553; 83036; 83605; 83735; 84443; 84484; 85025; 93005; 93306; 94760; 96372; 96375; G0378; J0360; J1644; J1815; J2270; J3010; J3475; J7050; U0003; U0005

== ENCOUNTER 2022-09-09 22:29 | Observation (INO) | payer OTHER ==
[~2022-09-09 22:29] MED LIST: Iopamidol 370 76% 100 ML VIAL ONE
[2022-09-09] MEDS ORDERED: cefTRIAXone\\ROCEPHIN 2 GM VIAL ONE (22:48)
[2022-09-09 23:26] LABS: Actual Bicarbonate (HCO3v) 22 mEq/L (22-28); Base Excess -4.2 mEq/L (-2.0 to +3.0); Calcium, Ionized (venous) 1.22 mmol/L (1.16-1.32); Chloride (VBG) 111 mmol/L (98-106); Critical Notified By: CP.JL; Hemoglobin (Hb) 9.8 g/dL (13.1-17.2); Potassium (VBG) 3.64 mmol/L (3.70-5.30); Puncture Site Other Site; RapidComm Collect By CP.JL; Sodium 145.6 mmol/L (133-146)
[2022-09-09 23:31] LABS: ALT (SGPT) 14 U/L (8-55); AST (SGOT) 11 U/L (5-34); Albumin 3.4 g/dL (3.5-5.0); Alkaline Phosphatase 97 U/L (40-110); Anion Gap 16 mmol/L (10-20); BUN (Urea Nitrogen) 27 mg/dL (8.9-20.6); Bilirubin, Total 0.3 mg/dL (0.2-1.2); Calc. Creatinine Clearance 0 mL/min (70-130); Calcium 8.7 mg/dL (7.8-10.44); Carbon Dioxide 21 mmol/L (22-29); Chloride 112 mmol/L (98-107); Estimated GFR 38; Globulin 2.4 g/dL (2.4-3.5); Glucose 163 mg/dL (70-105); Lipase 29 U/L (8-78); Magnesium 1.8 mg/dL (1.6-2.6); Potassium 3.6 mmol/L (3.5-5.1); Protein, Total 5.8 g/dL (6.0-8.3); Sodium 145 mmol/L (136-145)
[2022-09-09 23:32] LABS: Acetaminophen Less than 10.0 mcg/mL (10.0-30.0); Alcohol Less than 10 mg/dL (Less than 10); Salicylate Less than 8.0 mg/dL (15.0-30.0)
[2022-09-10] MEDS ORDERED: Dextrose 50% Abboject 50 ML SYRINGE ONE ×2 (00:09→01:07)
[2022-09-10 00:14] LABS: #Monocytes 0.5 10x3/uL (0.0-1.1); #Neutrophils 3.8 10x3/uL (1.5-8.4); %Basophils 0.3 % (0.0-2.0); %Eosinophils 0.6 % (0.0-6.0); %Lymphocytes 32.5 % (18.0-47.0); %Monocytes 7.2 % (0.0-10.0); %Neutrophils 59.1 % (40.0-75.0); Mean Corpuscular HGB CONC 32.4 g/dL (32.0-36.0); Mean Corpuscular Hemoglobin 25.4 pg (27.0-33.0); Mean Corpuscular Volume 78.3 fl (81.2-95.1); Mean Platelet Volume 10.5 fl (7.4-10.4); Platelet Count 303 10x3/uL (150-450); Red Blood Cell (RBC) Count 3.55 10x6/uL (4.32-5.72); White Blood Cell (WBC) Count 6.4 10x3/uL (3.5-10.5)
[2022-09-10 01:59] LABS: Lactic Acid 2.2 mmol/L (0.5-2.2)
[2022-09-10 03:04] LABS: Actual Bicarbonate (HCO3v) 22 mEq/L (22-28); Calcium, Ionized (venous) 1.17 mmol/L (1.16-1.32); Chloride (VBG) 110 mmol/L (98-106); Critical Notified By: CP.JL; Hemoglobin (Hb) 9.7 g/dL (13.1-17.2); Potassium (VBG) 3.79 mmol/L (3.70-5.30); Puncture Site Other Site; RapidComm Collect By lab; pH (venous) 7.32 (7.32-7.43)
[2022-09-10 03:26] LABS: Bilirubin Neg (Negative); Blood, Urine 10 (Negative); Clarity Sl. Cloudy (Clear); Glucose, Urine (Dipstick) >=1000 mg/dL (Negative); Ketone, Urine Negative (Negative); Leukocyte Negative (Negative); Nitrite Negative (Negative); Protein, Urine (Dipstick) 100 mg/dl (Neg-Trace); Specific Gravity, Urine 1.015 (1.005-1.030); Urobilinogen Normal mg/dL (Less than 2)
[2022-09-10 03:34] LABS: Amphetamine Not Detected (NotDetected); Barbiturates Screen Not Detected (NotDetected); Benzodiazepine Screen Not Detected (NotDetected); Cocaine Metabolite Screen Not Detected (NotDetected); Methadone Not Detected (NotDetected); Methamphetamine Not Detected (NotDetected); Opiate Screen Not Detected (NotDetected); Oxycodone Screen Not Detected (NotDetected); Phencyclidine (PCP) Detected (NotDetected); THC/Cannabinoid Screen Not Detected (NotDetected); Tricyclic Screen Not Detected (NotDetected)
[2022-09-10 03:37] LABS: Bacteria/HPF None Seen HPF (None Seen); RBC/HPF 0-3 HPF (0-3); Squamous Epithelial None Seen HPF (0-3); WBC/HPF 0-3 HPF (0-3)
[2022-09-10 05:14] LABS: SARS-CoV-2 NAA Rapid Test Not Detected (NotDetected)
[2022-09-10] MEDS ORDERED: Dextrose 5% in Water 1,000 ML IV PRN ×2 (05:16→05:22)
[2022-09-10] MEDS ORDERED: Guaifenesin DM 100-10/5 ML UDCUP PO PRN (05:16)
[2022-09-10] MEDS ORDERED: Ondansetron PF 4 MG/2 ML Vial IVP PRN (05:16)
[2022-09-10] MEDS ORDERED: Senokot S 8.6-50 MG TAB PO PRN (05:16)
[2022-09-10] MEDS ORDERED: Dextrose 50% Abboject 50 ML SYRINGE SLOW IVP PRN ×2 (05:16→05:22)
[2022-09-10] MEDS ORDERED: Acetaminophen 325 MG TAB PO PRN (05:16)
[2022-09-10] MEDS ORDERED: Calcium Carbonate 500 MG ChewTAB PO PRN (05:16)
[2022-09-10] MEDS ORDERED: Lactated Ringer's 500 ML IV SCH (05:30)
[2022-09-10] MEDS: Carvedilol 6.25 MG TAB PO SCH ×2 (06:48→17:39)
[2022-09-10 08:30] LABS: #Eosinphils 0.1 10x3/uL (0.0-0.5); #Monocytes 0.5 10x3/uL (0.0-1.1); #Neutrophils 3.7 10x3/uL (1.5-8.4); %Basophils 0.5 % (0.0-2.0); %Eosinophils 1.4 % (0.0-6.0); %Lymphocytes 34.5 % (18.0-47.0); %Monocytes 7.3 % (0.0-10.0); %Neutrophils 56.1 % (40.0-75.0); Hemoglobin 8.8 g/dL (13.5-17.5); Mean Corpuscular HGB CONC 32.4 g/dL (32.0-36.0); Mean Corpuscular Hemoglobin 25.5 pg (27.0-33.0); Mean Corpuscular Volume 78.8 fl (81.2-95.1); Platelet Count 323 10x3/uL (150-450); Red Blood Cell (RBC) Count 3.45 10x6/uL (4.32-5.72); White Blood Cell (WBC) Count 6.6 10x3/uL (3.5-10.5)
[2022-09-10 08:32] LABS: Anion Gap 14 mmol/L (10-20); BUN (Urea Nitrogen) 27 mg/dL (8.9-20.6); CK (CPK) 142 U/L (30-200); Calc. Creatinine Clearance 0 mL/min (70-130); Calcium 8.5 mg/dL (7.8-10.44); Carbon Dioxide 22 mmol/L (22-29); Chloride 111 mmol/L (98-107); Estimated GFR 51; Glucose 188 mg/dL (70-105); Potassium 3.9 mmol/L (3.5-5.1); Sodium 143 mmol/L (136-145)
[2022-09-10] MEDS ORDERED: Amlodipine 5 MG TAB PO SCH (09:00)
[2022-09-10] MEDS ORDERED: Pregabalin 50 MG CAP ONE (09:27)
[2022-09-10] MEDS ORDERED: Aspirin 81 mg Enteric Coated Tablet ONE (09:27)
[2022-09-10] MEDS ORDERED: Amlodipine 5 MG TAB ONE (09:28)
[2022-09-10] MEDS ORDERED: Enoxaparin Sodium 40 MG/0.4 ML SYRINGE ONE (09:28)
[2022-09-10] MEDS ORDERED: Nicotine 14 MG PATCH ONE (09:28)
[2022-09-10] MEDS: Enoxaparin Sodium 40 MG/0.4 ML SYRINGE SC SCH (09:30)
[2022-09-10] MEDS: Aspirin 81 mg Enteric Coated Tablet PO SCH (09:30)
[2022-09-10] MEDS: Pregabalin 75 MG CAP PO SCH ×2 (09:30→21:09)
[2022-09-10] MEDS: Lisinopril 5 MG TAB PO SCH (09:30)
[2022-09-10] MEDS: Nicotine 14 MG PATCH TD SCH (09:30)
[2022-09-10] MEDS: Lactated Ringer's 500 ML IV SCH ×2 (09:45→09:46)
[2022-09-10] MEDS: HumaLOG 300 UNITS/3 ML VIAL SC PRN ×2 (13:39→21:31)
[2022-09-10] MEDS ORDERED: HYDROcodone/Acetaminophen 10/325 mg Tablet PO PRN (14:12)
[2022-09-10] MEDS ORDERED: FLU VACC QS2022-23(6MOS UP)/PF 60 MCG/0.5 ML SYRINGE IM ONE (16:30)
[2022-09-10] MEDS: Amlodipine 5 MG TAB PO SCH (21:09)
[2022-09-11 04:47] LABS: #Eosinphils 0.1 10x3/uL (0.0-0.5); #Monocytes 0.4 10x3/uL (0.0-1.1); #Neutrophils 3.9 10x3/uL (1.5-8.4); %Basophils 0.3 % (0.0-2.0); %Eosinophils 1.3 % (0.0-6.0); %Lymphocytes 27.7 % (18.0-47.0); %Monocytes 6.2 % (0.0-10.0); %Neutrophils 64.2 % (40.0-75.0); Hemoglobin 8.7 g/dL (13.5-17.5); Mean Corpuscular HGB CONC 31.5 g/dL (32.0-36.0); Mean Corpuscular Hemoglobin 24.9 pg (27.0-33.0); Mean Corpuscular Volume 78.9 fl (81.2-95.1); Mean Platelet Volume 10.5 fl (7.4-10.4); Platelet Count 275 10x3/uL (150-450); RBC Distribution Width 14.3 % (11.5-14.5); White Blood Cell (WBC) Count 6.1 10x3/uL (3.5-10.5)
[2022-09-11 04:52] LABS: Anion Gap 13 mmol/L (10-20); BUN (Urea Nitrogen) 23 mg/dL (8.9-20.6); Calc. Creatinine Clearance 0 mL/min (70-130); Calcium 8.9 mg/dL (7.8-10.44); Carbon Dioxide 19 mmol/L (22-29); Chloride 118 mmol/L (98-107); Estimated GFR 70; Glucose 150 mg/dL (70-105); Potassium 4.6 mmol/L (3.5-5.1); Sodium 145 mmol/L (136-145)
[2022-09-11] MEDS: Enoxaparin Sodium 40 MG/0.4 ML SYRINGE SC SCH (08:48)
[2022-09-11] MEDS: Pregabalin 75 MG CAP PO SCH (08:49)
[2022-09-11] MEDS: Lisinopril 5 MG TAB PO SCH (08:49)
[2022-09-11] MEDS: Nicotine 14 MG PATCH TD SCH (08:50)
[2022-09-11] MEDS: Amlodipine 5 MG TAB PO SCH (08:50)
[2022-09-11] MEDS: Carvedilol 6.25 MG TAB PO SCH (08:50)
[2022-09-11] MEDS: Aspirin 81 mg Enteric Coated Tablet PO SCH (08:50)
[2022-09-11] MEDS: HumaLOG 300 UNITS/3 ML VIAL SC PRN (12:50)
[2022-09-11 13:55] VITALS: BP 142/94; TEMP 97.1
[2022-09-12 00:09] LABS: Hemoglobin A1c 8.8 % (4.0-6.0)
== END 2022-09-11 14:33 | disposition home or self-care (01) ==
LOC: CSHERS 22:29 → INTOOBSV 09-10 05:42 → CSHERHOLD 09-10 05:42 → CSHTELE 09-10 09:22
PROVIDERS: ADMIT Student in an Organized Health Care Education/Training Program; ATTEND Family Medicine
DX: R55 Syncope and collapse (principal); I13.0 Hypertensive heart and chronic kidney disease with heart failure and stage 1 through stage 4 chronic kidney disease, or unspecified chronic kidney disease; I50.20 Unspecified systolic (congestive) heart failure; E11.22 Type 2 diabetes mellitus with diabetic chronic kidney disease; N18.2 Chronic kidney disease, stage 2 (mild); I48.0 Paroxysmal atrial fibrillation; F17.210 Nicotine dependence, cigarettes, uncomplicated; E11.649 Type 2 diabetes mellitus with hypoglycemia without coma; R09.89 Other specified symptoms and signs involving the circulatory and respiratory systems; E11.40 Type 2 diabetes mellitus with diabetic neuropathy, unspecified; F16.10 Hallucinogen abuse, uncomplicated; N17.9 Acute kidney failure, unspecified; Z20.822 Contact with and (suspected) exposure to COVID-19; Z79.4 Long term (current) use of insulin; Z79.899 Other long term (current) drug therapy; Z79.82 Long term (current) use of aspirin
CPT/HCPCS: 36415; 36416; 70450; 71045; 71275; 74174; 80048; 80053; 80306; 80307; 81003; 81015; 82550; 82805; 83036; 83605; 83690; 83735; 83880; 84145; 84443; 84484; 85025; 86850; 86900; 86901; 87040; 87086; 93005; 93306; 96361; 96365; 96372; 96375; 96376; G0378; J0696; J1650; J7120; J7999; Q9967; U0002

== ENCOUNTER 2023-07-16 17:55 | Inpatient (IN) | payer OTHER ==
[2023-07-16 18:26] LABS: #Eosinphils 0.1 10x3/uL (0.0-0.5); #Monocytes 0.6 10x3/uL (0.0-1.1); #Neutrophils 5.6 10x3/uL (1.5-8.4); %Basophils 0.5 % (0.0-2.0); %Eosinophils 0.6 % (0.0-6.0); %Lymphocytes 26.3 % (18.0-47.0); %Monocytes 7.3 % (0.0-10.0); %Neutrophils 65.1 % (40.0-75.0); Hematocrit 32.1 % (38.8-50.0); Hemoglobin 10.1 g/dL (13.5-17.5); Mean Corpuscular HGB CONC 31.5 g/dL (32.0-36.0); Mean Corpuscular Hemoglobin 24.8 pg (27.0-33.0); Mean Corpuscular Volume 78.9 fl (81.2-95.1); Mean Platelet Volume 12.2 fl (7.4-10.4); Platelet Count 358 10x3/uL (150-450); RBC Distribution Width 14.5 % (11.5-14.5); Red Blood Cell (RBC) Count 4.07 10x6/uL (4.32-5.72); White Blood Cell (WBC) Count 8.6 10x3/uL (3.5-10.5)
[2023-07-16 18:49] LABS: ALT (SGPT) 29 U/L (8-55); AST (SGOT) 13 U/L (5-34); Albumin 3.7 g/dL (3.5-5.0); Alkaline Phosphatase 160 U/L (40-110); Anion Gap 22 mmol/L (10-20); BUN (Urea Nitrogen) 58 mg/dL (8.9-20.6); Bilirubin, Total 0.3 mg/dL (0.2-1.2); Calc. Creatinine Clearance 0 mL/min (70-130); Calcium 9.4 mg/dL (7.8-10.44); Carbon Dioxide 22 mmol/L (22-29); Chloride 105 mmol/L (98-107); Estimated GFR 19; Globulin 3.5 g/dL (2.4-3.5); Potassium 5.1 mmol/L (3.5-5.1); Protein, Total 7.2 g/dL (6.0-8.3); Sodium 144 mmol/L (136-145)
[2023-07-16 19:03] LABS: Glucose 779 mg/dL (70-105)
[2023-07-16] MEDS ORDERED: Ipratropium/Albuterol 3 ML NEB ONE (19:28)
[2023-07-16 19:50] LABS: Actual Bicarbonate (HCO3v) 22.6 mEq/L (22-28); Base Excess -3.7 mEq/L (-2 - +2); Calcium, Ionized (venous) 1.14 mmol/L (1.16-1.32); Chloride (VBG) 109 mmol/L (98-106); Hematocrit-VBG 32 % (42.0-52.0); Hemoglobin (Hb) 10.8 g/dL (13.1-17.2); Puncture Site Other Site; RapidComm Collect By CBN; Sodium 145.2 mmol/L (133-146); pH (venous) 7.306 (7.32-7.43)
[2023-07-16 20:03] LABS: Magnesium 2.7 mg/dL (1.6-2.6)
[2023-07-16] MEDS ORDERED: levETIRAcetam 500 MG/5 ML VIAL ONE (20:04)
[2023-07-16] MEDS ORDERED: Ondansetron PF 4 MG/2 ML Vial ONE (20:04)
[2023-07-16] MEDS ORDERED: Aspirin 300 MG Suppository ONE (20:05)
[2023-07-16] MEDS ORDERED: Insulin Regular 300 UNITS/3 ML VIAL ONE (20:05)
[2023-07-16 20:40] LABS: Amphetamine Not Detected (NotDetected); Barbiturates Screen Not Detected (NotDetected); Benzodiazepine Screen Not Detected (NotDetected); Bilirubin Neg (Negative); Blood, Urine 25 (Negative); Clarity Clear (Clear); Cocaine Metabolite Screen Not Detected (NotDetected); Glucose, Urine (Dipstick) >=1000 mg/dL (Negative); Ketone, Urine Negative (Negative); Leukocyte Negative (Negative); Methadone Not Detected (NotDetected); Methamphetamine Not Detected (NotDetected); Nitrite Negative (Negative); Opiate Screen Not Detected (NotDetected); Oxycodone Screen Not Detected (NotDetected); Phencyclidine (PCP) Detected (NotDetected); Protein, Urine (Dipstick) 100 mg/dl (Neg-Trace); THC/Cannabinoid Screen Not Detected (NotDetected); Tricyclic Screen Not Detected (NotDetected); Urobilinogen Normal mg/dL (Less than 2)
[2023-07-16 20:56] LABS: Bacteria/HPF None Seen HPF (None Seen); CAUTI Indications for Culture Alt mental st,lethar; RBC/HPF 0-3 HPF (0-3); Squamous Epithelial None Seen HPF (0-3); WBC/HPF None Seen HPF (0-3)
[2023-07-16 20:57] LABS: Urine Culture Reflex No No
[2023-07-16 21:10] LABS: INR-International Normal Ratio 0.9; Prothrombin Time 10.1 sec (9.5-12.1)
[2023-07-16 21:16] LABS: PTT Less than 20.0 sec (22.0-33.0)
[2023-07-16] MEDS ORDERED: Glucagon 1 MG/ML KIT IM PRN (21:49)
[2023-07-16] MEDS ORDERED: Calcium Carbonate 500 MG ChewTAB PO PRN (21:49)
[2023-07-16] MEDS ORDERED: Ondansetron PF 4 MG/2 ML Vial IVP PRN (21:49)
[2023-07-16] MEDS ORDERED: Dextrose 5% in Water 1,000 ML IV PRN (21:49)
[2023-07-16] MEDS ORDERED: Acetaminophen 325 MG TAB PO PRN (21:49)
[2023-07-16] MEDS ORDERED: Dextrose 50% Abboject 50 ML SYRINGE SLOW IVP PRN (21:49)
[2023-07-16] MEDS ORDERED: Acetaminophen 650 MG Suppository PR PRN (21:49)
[2023-07-16] MEDS ORDERED: Guaifenesin DM 100-10/5 ML UDCUP PO PRN (21:49)
[2023-07-16] MEDS ORDERED: Lorazepam 2 MG/ML VIAL SLOW IVP PRN (21:57)
[2023-07-16] MEDS ORDERED: Ampicillin/Sulbactam 1.5 GM in Sodium Chloride 0.9% 100 ML IVPB SCH (22:00)
[2023-07-16] MEDS ORDERED: Piperacillin/Tazobactam 3.375 GM VIAL ONE (22:03)
[2023-07-16 22:44] LABS: Actual Bicarbonate (HCO3v) 21.6 mEq/L (22-28); Base Excess -3.6 mEq/L (-2 - +2); Calcium, Ionized (venous) 1.13 mmol/L (1.16-1.32); Chloride (VBG) 115 mmol/L (98-106); Hematocrit-VBG 29 % (42.0-52.0); Hemoglobin (Hb) 9.8 g/dL (13.1-17.2); Potassium (VBG) 4.16 mmol/L (3.70-5.30); Puncture Site Other Site; RapidComm Collect By CBN; pH (venous) 7.356 (7.32-7.43)
[2023-07-16 22:56] LABS: Alcohol Less than 10.0 mg/dL (Less than 10); Anion Gap 17 mmol/L (10-20); BUN (Urea Nitrogen) 52 mg/dL (8.9-20.6); CK (CPK) 58 U/L (30-200); Calc. Creatinine Clearance 0 mL/min (70-130); Calcium 8.5 mg/dL (7.8-10.44); Carbon Dioxide 20 mmol/L (22-29); Chloride 117 mmol/L (98-107); Estimated GFR 26; Glucose 391 mg/dL (70-105); Magnesium 2.6 mg/dL (1.6-2.6); Potassium 4.2 mmol/L (3.5-5.1); Sodium 150 mmol/L (136-145)
[2023-07-16] MEDS ORDERED: Lantus 1000 UNITS/10 ML VIAL SC SCH (23:00)
[2023-07-16] MEDS ORDERED: Lactated Ringer's 1,000 ML IV SCH (23:00)
[2023-07-16] MEDS: HumaLOG 300 UNITS/3 ML VIAL SC PRN (23:22)
[2023-07-17 00:47] LABS: SARS-CoV-2 NAA Rapid Test Not Detected (NotDetected)
[2023-07-17] MEDS: Piperacillin/Tazobactam 3.375 GM in Sodium Chloride 0.9% 100 ML IVPB SCH ×3 (01:33→18:35)
[2023-07-17 03:54] LABS: #Basophils 0.1 10x3/uL (0.0-0.2); #Eosinphils 0.1 10x3/uL (0.0-0.5); #Monocytes 0.9 10x3/uL (0.0-1.1); #Neutrophils 10.4 10x3/uL (1.5-8.4); %Basophils 0.4 % (0.0-2.0); %Eosinophils 0.4 % (0.0-6.0); %Lymphocytes 16.5 % (18.0-47.0); %Monocytes 6.3 % (0.0-10.0); Hematocrit 29.3 % (38.8-50.0); Mean Corpuscular HGB CONC 30.7 g/dL (32.0-36.0); Mean Corpuscular Hemoglobin 24.6 pg (27.0-33.0); Mean Corpuscular Volume 80.1 fl (81.2-95.1); Mean Platelet Volume 10.9 fl (7.4-10.4); Platelet Count 286 10x3/uL (150-450); RBC Distribution Width 14.4 % (11.5-14.5); Red Blood Cell (RBC) Count 3.66 10x6/uL (4.32-5.72); White Blood Cell (WBC) Count 13.6 10x3/uL (3.5-10.5)
[2023-07-17 04:01] LABS: ALT (SGPT) 23 U/L (8-55); AST (SGOT) 10 U/L (5-34); Albumin 3.3 g/dL (3.5-5.0); Alkaline Phosphatase 132 U/L (40-110); Anion Gap 14 mmol/L (10-20); BUN (Urea Nitrogen) 48 mg/dL (8.9-20.6); Bilirubin, Total 0.3 mg/dL (0.2-1.2); CK (CPK) 79 U/L (30-200); Calc. Creatinine Clearance 27 mL/min (70-130); Calcium 8.5 mg/dL (7.8-10.44); Carbon Dioxide 24 mmol/L (22-29); Chloride 120 mmol/L (98-107); Estimated GFR 29; Globulin 2.4 g/dL (2.4-3.5); Glucose 135 mg/dL (70-105); Magnesium 2.7 mg/dL (1.6-2.6); Phosphorus 3.5 mg/dL (2.3-4.7); Potassium 4.1 mmol/L (3.5-5.1); Protein, Total 5.7 g/dL (6.0-8.3)
[2023-07-17 04:04] LABS: Sodium 154 mmol/L (136-145)
[2023-07-17 04:13] LABS: Cardiac Risk 4.2 (Less than 4.5); Cholesterol 142 mg/dl (< 200 Desired); HDL Cholesterol 34 mg/dL (>60 Neg Risk); LDL Cholesterol, Calculated 81 mg/dL; Triglycerides 136 mg/dL (Less than 150)
[2023-07-17 05:24] LABS: Anion Gap 13 mmol/L (10-20); BUN (Urea Nitrogen) 45 mg/dL (8.9-20.6); Calc. Creatinine Clearance 29 mL/min (70-130); Calcium 8.7 mg/dL (7.8-10.44); Carbon Dioxide 25 mmol/L (22-29); Chloride 119 mmol/L (98-107); Estimated GFR 30; Glucose 115 mg/dL (70-105); Potassium 4.1 mmol/L (3.5-5.1)
[2023-07-17 05:38] LABS: Sodium 153 mmol/L (136-145)
[2023-07-17] MEDS: Sodium Chloride 0.45% 1,000 ML IV SCH ×2 (06:00→14:28)
[2023-07-17] MEDS ORDERED: levETIRAcetam in NS 500 MG in Premix Bag 1 BAG IVPB SCH (09:00)
[2023-07-17] MEDS ORDERED: Lantus 1000 UNITS/10 ML VIAL SC SCH (09:00)
[2023-07-17] MEDS: levETIRAcetam 500 MG/5 ML VIAL SLOW IVP SCH ×2 (09:10→23:53)
[2023-07-17] MEDS: Heparin 5,000 UNITS/ML VIAL SC SCH ×3 (09:10→23:52)
[2023-07-17] MEDS: Aspirin 81 mg Enteric Coated Tablet PO SCH ×2 (09:10→11:32)
[2023-07-17] MEDS: Famotidine/PF 20 mg/2ml Vial SLOW IVP SCH (09:10)
[2023-07-17 10:05] LABS: Anion Gap 16 mmol/L (10-20); BUN (Urea Nitrogen) 42 mg/dL (8.9-20.6); Calc. Creatinine Clearance 31 mL/min (70-130); Carbon Dioxide 22 mmol/L (22-29); Chloride 121 mmol/L (98-107); Estimated GFR 33; Glucose 75 mg/dL (70-105)
[2023-07-17] MEDS: hydrALAZINE 20 MG/ML VIAL SLOW IVP PRN (10:15)
[2023-07-17 10:45] LABS: Sodium 155 mmol/L (136-145)
[2023-07-17 13:06] LABS: Hemoglobin A1c 13.8 % (4.0-6.0)
[2023-07-17 14:06] LABS: Anion Gap 15 mmol/L (10-20); BUN (Urea Nitrogen) 37 mg/dL (8.9-20.6); Calc. Creatinine Clearance 31 mL/min (70-130); Calcium 8.3 mg/dL (7.8-10.44); Carbon Dioxide 19 mmol/L (22-29); Chloride 114 mmol/L (98-107); Estimated GFR 33; Glucose 321 mg/dL (70-105); Potassium 4.3 mmol/L (3.5-5.1); Sodium 144 mmol/L (136-145)
[2023-07-17] MEDS: HumaLOG 300 UNITS/3 ML VIAL SC PRN (15:44)
[2023-07-17] MEDS: Lantus 1000 UNITS/10 ML VIAL SC SCH (23:53)
[2023-07-17] MEDS: Atorvastatin Calcium 40 MG TAB PO SCH (23:53)
[2023-07-18] MEDS: Piperacillin/Tazobactam 3.375 GM in Sodium Chloride 0.9% 100 ML IVPB SCH ×3 (06:16→18:01)
[2023-07-18] MEDS ORDERED: Ondansetron ODT 4 MG TAB PO PRN (07:14)
[2023-07-18] MEDS ORDERED: Lorazepam 1 MG TAB PO PRN (07:14)
[2023-07-18] MEDS ORDERED: Electrolyte Replacement Protocol 1 EACH FS SCH (07:15)
[2023-07-18 07:56] LABS: #Eosinphils 0.1 10x3/uL (0.0-0.5); #Monocytes 0.4 10x3/uL (0.0-1.1); #Neutrophils 4.5 10x3/uL (1.5-8.4); %Basophils 0.3 % (0.0-2.0); %Eosinophils 1.7 % (0.0-6.0); %Lymphocytes 27.8 % (18.0-47.0); %Monocytes 5.4 % (0.0-10.0); %Neutrophils 64.5 % (40.0-75.0); Hematocrit 26.8 % (38.8-50.0); Hemoglobin 8.4 g/dL (13.5-17.5); Mean Corpuscular HGB CONC 31.3 g/dL (32.0-36.0); Mean Corpuscular Hemoglobin 24.4 pg (27.0-33.0); Mean Corpuscular Volume 77.9 fl (81.2-95.1); Mean Platelet Volume 11.4 fl (7.4-10.4); Platelet Count 277 10x3/uL (150-450); RBC Distribution Width 14.4 % (11.5-14.5); Red Blood Cell (RBC) Count 3.44 10x6/uL (4.32-5.72); White Blood Cell (WBC) Count 6.9 10x3/uL (3.5-10.5)
[2023-07-18] MEDS ORDERED: Carvedilol 6.25 MG TAB PO SCH ×2 (08:00→11:00)
[2023-07-18 08:11] LABS: Anion Gap 11 mmol/L (10-20); BUN (Urea Nitrogen) 25 mg/dL (8.9-20.6); Calc. Creatinine Clearance 40 mL/min (70-130); Calcium 8.4 mg/dL (7.8-10.44); Carbon Dioxide 22 mmol/L (22-29); Chloride 112 mmol/L (98-107); Estimated GFR 44; Glucose 197 mg/dL (70-105); Sodium 141 mmol/L (136-145)
[2023-07-18] MEDS: levETIRAcetam 500 MG/5 ML VIAL SLOW IVP SCH ×2 (08:11→20:46)
[2023-07-18] MEDS: Lactated Ringer's 1,000 ML IV SCH ×3 (08:11→23:29)
[2023-07-18] MEDS: Aspirin 81 mg Enteric Coated Tablet PO SCH (08:12)
[2023-07-18] MEDS: Thiamine HCl 200 MG/2 ML VIAL SLOW IVP SCH (08:12)
[2023-07-18] MEDS: Multivit, Therapeutic 1 TAB PO SCH (08:12)
[2023-07-18] MEDS: Famotidine/PF 20 mg/2ml Vial SLOW IVP SCH (08:12)
[2023-07-18] MEDS: Heparin 5,000 UNITS/ML VIAL SC SCH ×3 (08:12→20:41)
[2023-07-18] MEDS: Folic Acid 1 MG TAB PO SCH (08:12)
[2023-07-18] MEDS: Lorazepam 1 MG TAB PO SCH ×3 (08:13→18:01)
[2023-07-18] MEDS ORDERED: Amlodipine 5 MG TAB PO SCH ×2 (09:00→11:00)
[2023-07-18] MEDS: hydrALAZINE 20 MG/ML VIAL SLOW IVP PRN (10:38)
[2023-07-18] MEDS ORDERED: HYDROcodone/Acetaminophen 10/325 mg Tablet PO SCH (11:00)
[2023-07-18] MEDS: HumaLOG 300 UNITS/3 ML VIAL SC PRN ×2 (11:56→15:45)
[2023-07-18 14:09] LABS: Hemoglobin A1c Greater than 14.0 % (4.0-6.0)
[2023-07-18] MEDS ORDERED: HYDROcodone/Acetaminophen 10/325 mg Tablet PO PRN (15:00)
[2023-07-18] MEDS: Carvedilol 12.5 MG TAB PO SCH (15:41)
[2023-07-18] MEDS: Atorvastatin Calcium 40 MG TAB PO SCH (20:40)
[2023-07-18] MEDS: Lantus 1000 UNITS/10 ML VIAL SC SCH (21:34)
[2023-07-19] MEDS: Lorazepam 1 MG TAB PO SCH ×4 (01:17→18:51)
[2023-07-19] MEDS: HumaLOG 300 UNITS/3 ML VIAL SC PRN ×3 (01:24→21:30)
[2023-07-19] MEDS: Piperacillin/Tazobactam 3.375 GM in Sodium Chloride 0.9% 100 ML IVPB SCH ×3 (02:23→18:51)
[2023-07-19 04:24] LABS: Hematocrit 24.9 % (38.8-50.0); Mean Corpuscular HGB CONC 32.1 g/dL (32.0-36.0); Mean Corpuscular Hemoglobin 24.6 pg (27.0-33.0); Mean Corpuscular Volume 76.6 fl (81.2-95.1); Mean Platelet Volume 11.3 fl (7.4-10.4); Platelet Count 251 10x3/uL (150-450); RBC Distribution Width 13.9 % (11.5-14.5); Red Blood Cell (RBC) Count 3.25 10x6/uL (4.32-5.72); White Blood Cell (WBC) Count 9.2 10x3/uL (3.5-10.5)
[2023-07-19 04:25] LABS: MDiff Complete? YES
[2023-07-19 04:26] LABS: Anion Gap 11 mmol/L (10-20); BUN (Urea Nitrogen) 23 mg/dL (8.9-20.6); Calc. Creatinine Clearance 42 mL/min (70-130); Calcium 7.9 mg/dL (7.8-10.44); Carbon Dioxide 23 mmol/L (22-29); Chloride 108 mmol/L (98-107); Estimated GFR 48; Glucose 193 mg/dL (70-105); Potassium 4.2 mmol/L (3.5-5.1); Sodium 138 mmol/L (136-145)
[2023-07-19 04:58] LABS: Band 5 % (5-11); Lymphocytes 10 % (21-51); Monocytes 9 % (0-10); Neutrophil 75 % (42-75); Reactive Lymphocytes 1 % (0-10)
[2023-07-19 05:07] LABS: Hypochromia SLIGHT = 6-15 cells (100X) (0-5/hpf); Microcytosis SLIGHT = 6-15 cells (100X) (0-5/hpf); Schistocytes SLIGHT = 2-5 cells (100X) (0-1/hpf)
[2023-07-19] MEDS: Lactated Ringer's 1,000 ML IV SCH ×3 (05:48→22:36)
[2023-07-19] MEDS ORDERED: Lorazepam 1 MG TAB PO PRN (07:14)
[2023-07-19] MEDS: Carvedilol 12.5 MG TAB PO SCH ×2 (08:00→16:39)
[2023-07-19] MEDS: Heparin 5,000 UNITS/ML VIAL SC SCH ×3 (09:00→21:17)
[2023-07-19] MEDS: Famotidine/PF 20 mg/2ml Vial SLOW IVP SCH (09:00)
[2023-07-19] MEDS ORDERED: Amlodipine 5 MG TAB PO SCH (09:00)
[2023-07-19] MEDS: Amlodipine 10 MG TAB PO SCH (09:08)
[2023-07-19] MEDS: Multivit, Therapeutic 1 TAB PO SCH (09:08)
[2023-07-19] MEDS: Aspirin 81 mg Enteric Coated Tablet PO SCH (09:08)
[2023-07-19] MEDS: Thiamine HCl 200 MG/2 ML VIAL SLOW IVP SCH (09:09)
[2023-07-19] MEDS: levETIRAcetam 500 MG/5 ML VIAL SLOW IVP SCH ×2 (09:09→21:17)
[2023-07-19] MEDS: Folic Acid 1 MG TAB PO SCH (09:09)
[2023-07-19] MEDS: Atorvastatin Calcium 40 MG TAB PO SCH (21:17)
[2023-07-19] MEDS: Lantus 1000 UNITS/10 ML VIAL SC SCH (21:20)
[2023-07-20] MEDS: Lorazepam 1 MG TAB PO SCH (01:01)
[2023-07-20] MEDS: HumaLOG 300 UNITS/3 ML VIAL SC PRN ×2 (01:02→16:00)
[2023-07-20] MEDS: Piperacillin/Tazobactam 3.375 GM in Sodium Chloride 0.9% 100 ML IVPB SCH ×3 (02:22→18:20)
[2023-07-20 04:04] LABS: Anion Gap 13 mmol/L (10-20); BUN (Urea Nitrogen) 17 mg/dL (8.9-20.6); Calc. Creatinine Clearance 49 mL/min (70-130); Calcium 8.2 mg/dL (7.8-10.44); Carbon Dioxide 23 mmol/L (22-29); Chloride 108 mmol/L (98-107); Estimated GFR 58; Glucose 161 mg/dL (70-105); Potassium 3.8 mmol/L (3.5-5.1); Sodium 140 mmol/L (136-145)
[2023-07-20 04:57] LABS: #Eosinphils 0.1 10x3/uL (0.0-0.5); #Monocytes 0.4 10x3/uL (0.0-1.1); #Neutrophils 4.1 10x3/uL (1.5-8.4); %Basophils 0.2 % (0.0-2.0); %Eosinophils 1.8 % (0.0-6.0); %Lymphocytes 26.6 % (18.0-47.0); %Monocytes 5.6 % (0.0-10.0); %Neutrophils 65.5 % (40.0-75.0); Hematocrit 23.3 % (38.8-50.0); Hemoglobin 7.5 g/dL (13.5-17.5); Mean Corpuscular HGB CONC 32.2 g/dL (32.0-36.0); Mean Corpuscular Hemoglobin 24.4 pg (27.0-33.0); Mean Corpuscular Volume 75.6 fl (81.2-95.1); Platelet Count 233 10x3/uL (150-450); RBC Distribution Width 13.8 % (11.5-14.5); Red Blood Cell (RBC) Count 3.08 10x6/uL (4.32-5.72); White Blood Cell (WBC) Count 6.2 10x3/uL (3.5-10.5)
[2023-07-20] MEDS: Lactated Ringer's 1,000 ML IV SCH ×2 (06:39→21:37)
[2023-07-20] MEDS ORDERED: Lorazepam 1 MG TAB PO PRN (07:14)
[2023-07-20] MEDS: Lorazepam 0.5 MG TAB PO SCH ×3 (07:38→21:36)
[2023-07-20] MEDS: Carvedilol 12.5 MG TAB PO SCH ×2 (08:00→17:21)
[2023-07-20] MEDS: Heparin 5,000 UNITS/ML VIAL SC SCH ×3 (09:00→21:37)
[2023-07-20] MEDS: Folic Acid 1 MG TAB PO SCH (09:00)
[2023-07-20] MEDS: Amlodipine 10 MG TAB PO SCH (09:38)
[2023-07-20] MEDS: Multivit, Therapeutic 1 TAB PO SCH (09:39)
[2023-07-20] MEDS: Thiamine HCl 200 MG/2 ML VIAL SLOW IVP SCH (09:40)
[2023-07-20] MEDS: Aspirin 81 mg Enteric Coated Tablet PO SCH (09:40)
[2023-07-20] MEDS: Famotidine/PF 20 mg/2ml Vial SLOW IVP SCH (09:40)
[2023-07-20] MEDS: levETIRAcetam 500 MG/5 ML VIAL SLOW IVP SCH ×2 (09:41→21:37)
[2023-07-20] MEDS ORDERED: Lorazepam 0.5 MG TAB PO SCH (20:30)
[2023-07-20] MEDS: Atorvastatin Calcium 40 MG TAB PO SCH (21:37)
[2023-07-20] MEDS: Lantus 1000 UNITS/10 ML VIAL SC SCH (21:37)
[2023-07-21] MEDS: Piperacillin/Tazobactam 3.375 GM in Sodium Chloride 0.9% 100 ML IVPB SCH ×3 (02:49→19:06)
[2023-07-21] MEDS ORDERED: Lorazepam 0.5 MG TAB PO SCH (03:30)
[2023-07-21 05:52] VITALS: BMI 19.3
[2023-07-21 07:07] LABS: Anion Gap 10 mmol/L (10-20); BUN (Urea Nitrogen) 17 mg/dL (8.9-20.6); Calc. Creatinine Clearance 47 mL/min (70-130); Calcium 8.2 mg/dL (7.8-10.44); Carbon Dioxide 24 mmol/L (22-29); Chloride 106 mmol/L (98-107); Estimated GFR 55; Glucose 255 mg/dL (70-105); Potassium 4.1 mmol/L (3.5-5.1); Sodium 136 mmol/L (136-145)
[2023-07-21] MEDS ORDERED: Lorazepam 0.5 MG TAB PO PRN (07:14)
[2023-07-21 07:22] LABS: #Eosinphils 0.1 10x3/uL (0.0-0.5); #Monocytes 0.5 10x3/uL (0.0-1.1); %Basophils 0.3 % (0.0-2.0); %Eosinophils 2.1 % (0.0-6.0); %Lymphocytes 24.4 % (18.0-47.0); %Monocytes 8.7 % (0.0-10.0); %Neutrophils 64.2 % (40.0-75.0); Hematocrit 23.6 % (38.8-50.0); Hemoglobin 7.7 g/dL (13.5-17.5); Mean Corpuscular HGB CONC 32.6 g/dL (32.0-36.0); Mean Corpuscular Hemoglobin 24.8 pg (27.0-33.0); Mean Corpuscular Volume 75.9 fl (81.2-95.1); Mean Platelet Volume 12.1 fl (7.4-10.4); Platelet Count 249 10x3/uL (150-450); RBC Distribution Width 13.6 % (11.5-14.5); Red Blood Cell (RBC) Count 3.11 10x6/uL (4.32-5.72); White Blood Cell (WBC) Count 6.2 10x3/uL (3.5-10.5)
[2023-07-21] MEDS: Thiamine 100 MG TAB PO SCH ×2 (09:07→10:07)
[2023-07-21] MEDS: Amlodipine 10 MG TAB PO SCH (09:07)
[2023-07-21] MEDS: Aspirin 81 mg Enteric Coated Tablet PO SCH (09:07)
[2023-07-21] MEDS: Carvedilol 12.5 MG TAB PO SCH ×2 (09:08→17:06)
[2023-07-21] MEDS: Famotidine/PF 20 mg/2ml Vial SLOW IVP SCH (09:08)
[2023-07-21] MEDS: levETIRAcetam 500 MG/5 ML VIAL SLOW IVP SCH ×2 (09:08→21:00)
[2023-07-21] MEDS: Multivit, Therapeutic 1 TAB PO SCH (09:08)
[2023-07-21] MEDS: Folic Acid 1 MG TAB PO SCH (09:08)
[2023-07-21] MEDS: Lactated Ringer's 1,000 ML IV SCH (10:05)
[2023-07-21] MEDS: Heparin 5,000 UNITS/ML VIAL SC SCH (10:07)
[2023-07-21] MEDS: HumaLOG 300 UNITS/3 ML VIAL SC PRN ×2 (12:34→16:00)
[2023-07-21] MEDS: Lantus 1000 UNITS/10 ML VIAL SC SCH (21:00)
[2023-07-21] MEDS: Apixaban 5 MG TAB PO SCH (21:00)
[2023-07-21] MEDS: Atorvastatin Calcium 40 MG TAB PO SCH (21:00)
[2023-07-22] MEDS: Lactated Ringer's 1,000 ML IV SCH ×2 (00:35→12:49)
[2023-07-22] MEDS: Piperacillin/Tazobactam 3.375 GM in Sodium Chloride 0.9% 100 ML IVPB SCH ×2 (03:05→11:25)
[2023-07-22 05:28] LABS: Anion Gap 10 mmol/L (10-20); BUN (Urea Nitrogen) 18 mg/dL (8.9-20.6); Calc. Creatinine Clearance 52 mL/min (70-130); Calcium 8.6 mg/dL (7.8-10.44); Carbon Dioxide 25 mmol/L (22-29); Chloride 107 mmol/L (98-107); Estimated GFR 61; Glucose 262 mg/dL (70-105); Potassium 3.7 mmol/L (3.5-5.1); Sodium 138 mmol/L (136-145)
[2023-07-22 05:39] LABS: #Eosinphils 0.1 10x3/uL (0.0-0.5); #Monocytes 0.6 10x3/uL (0.0-1.1); %Basophils 0.1 % (0.0-2.0); %Eosinophils 1.7 % (0.0-6.0); %Monocytes 8.3 % (0.0-10.0); %Neutrophils 69.6 % (40.0-75.0); Hematocrit 24.1 % (38.8-50.0); Hemoglobin 7.8 g/dL (13.5-17.5); Mean Corpuscular HGB CONC 32.4 g/dL (32.0-36.0); Mean Corpuscular Hemoglobin 24.5 pg (27.0-33.0); Mean Corpuscular Volume 75.5 fl (81.2-95.1); Mean Platelet Volume 11.6 fl (7.4-10.4); Platelet Count 318 10x3/uL (150-450); RBC Distribution Width 13.6 % (11.5-14.5); Red Blood Cell (RBC) Count 3.19 10x6/uL (4.32-5.72); White Blood Cell (WBC) Count 7.2 10x3/uL (3.5-10.5)
[2023-07-22] MEDS: HumaLOG 300 UNITS/3 ML VIAL SC PRN (05:49)
[2023-07-22] MEDS: Apixaban 5 MG TAB PO SCH (08:22)
[2023-07-22] MEDS: Amlodipine 10 MG TAB PO SCH (08:23)
[2023-07-22] MEDS: Carvedilol 12.5 MG TAB PO SCH ×2 (08:23→18:25)
[2023-07-22] MEDS: levETIRAcetam 500 MG/5 ML VIAL SLOW IVP SCH (08:23)
[2023-07-22] MEDS: Aspirin 81 mg Enteric Coated Tablet PO SCH (08:23)
[2023-07-22] MEDS: Famotidine/PF 20 mg/2ml Vial SLOW IVP SCH (08:23)
[2023-07-22] MEDS: Multivit, Therapeutic 1 TAB PO SCH (09:32)
[2023-07-22] MEDS: Folic Acid 1 MG TAB PO SCH (09:32)
[2023-07-22 18:24] VITALS: BP 126/77; TEMP 98.6
== END 2023-07-22 19:10 | disposition home or self-care (01) | DRG 64 ==
LOC: CSHERS 17:55 → CSHICU 22:40 → CSHTELE 07-17 17:19
PROVIDERS: ADMIT Student in an Organized Health Care Education/Training Program; ATTEND Hospitalist
DX: I63.512 Cerebral infarction due to unspecified occlusion or stenosis of left middle cerebral artery (principal); E11.00 Type 2 diabetes mellitus with hyperosmolarity without nonketotic hyperglycemic-hyperosmolar coma (NKHHC); G93.41 Metabolic encephalopathy; J96.01 Acute respiratory failure with hypoxia; N17.9 Acute kidney failure, unspecified; E87.0 Hyperosmolality and hypernatremia; E11.22 Type 2 diabetes mellitus with diabetic chronic kidney disease; I12.9 Hypertensive chronic kidney disease with stage 1 through stage 4 chronic kidney disease, or unspecified chronic kidney disease; N18.9 Chronic kidney disease, unspecified; Z20.822 Contact with and (suspected) exposure to COVID-19; I48.0 Paroxysmal atrial fibrillation; F32.A Depression, unspecified; F17.210 Nicotine dependence, cigarettes, uncomplicated; E11.40 Type 2 diabetes mellitus with diabetic neuropathy, unspecified; D64.9 Anemia, unspecified; Z79.899 Other long term (current) drug therapy; Z79.4 Long term (current) use of insulin; Z98.890 Other specified postprocedural states; Z79.82 Long term (current) use of aspirin
CPT/HCPCS: 36415; 36416; 51702; 70450; 70551; 71045; 76770; 80048; 80053; 80061; 80306; 80307; 81001; 82010; 82550; 82805; 83036; 83605; 83735; 84100; 84145; 84439; 84443; 85025; 85610; 85730; 87086; 93005; 93306; 93880; 94640; 94660; 94760; 96361; 96365; 96375; J0360; J1644; J1815; J1953; J2405; J2543; J3411; J3490; J7120; J7620; J7999; S0028

== ENCOUNTER 2023-07-25 17:01 | Emergency (ER) | payer OTHER ==
[2023-07-25 18:28] LABS: #Eosinphils 0.2 10x3/uL (0.0-0.5); #Monocytes 0.7 10x3/uL (0.0-1.1); #Neutrophils 5.4 10x3/uL (1.5-8.4); %Basophils 0.4 % (0.0-2.0); %Eosinophils 1.8 % (0.0-6.0); %Lymphocytes 24.6 % (18.0-47.0); %Monocytes 8.1 % (0.0-10.0); %Neutrophils 64.6 % (40.0-75.0); Actual Bicarbonate (HCO3v) 21.8 mEq/L (22-28); Base Excess -2.8 mEq/L (-2 - +2); Calcium, Ionized (venous) 1.13 mmol/L (1.16-1.32); Chloride (VBG) 103 mmol/L (98-106); Hematocrit 23.4 % (38.8-50.0); Hematocrit-VBG 26 % (42.0-52.0); Hemoglobin 7.7 g/dL (13.5-17.5); Hemoglobin (Hb) 8.7 g/dL (13.1-17.2); Mean Corpuscular HGB CONC 32.9 g/dL (32.0-36.0); Mean Corpuscular Hemoglobin 24.9 pg (27.0-33.0); Mean Corpuscular Volume 75.7 fl (81.2-95.1); Mean Platelet Volume 10.5 fl (7.4-10.4); Platelet Count 446 10x3/uL (150-450); Potassium (VBG) 4.29 mmol/L (3.70-5.30); Puncture Site Other Site; RBC Distribution Width 14.1 % (11.5-14.5); RapidComm Collect By CBL; Red Blood Cell (RBC) Count 3.09 10x6/uL (4.32-5.72); White Blood Cell (WBC) Count 8.4 10x3/uL (3.5-10.5); pH (venous) 7.389 (7.32-7.43)
[2023-07-25 18:41] LABS: ALT (SGPT) 42 U/L (8-55); AST (SGOT) 31 U/L (5-34); Albumin 3.2 g/dL (3.5-5.0); Alkaline Phosphatase 96 U/L (40-110); Anion Gap 13 mmol/L (10-20); BUN (Urea Nitrogen) 21 mg/dL (8.9-20.6); Bilirubin, Total 0.2 mg/dL (0.2-1.2); Calc. Creatinine Clearance 0 mL/min (70-130); Calcium 8.5 mg/dL (7.8-10.44); Carbon Dioxide 22 mmol/L (22-29); Chloride 104 mmol/L (98-107); Estimated GFR 66; Globulin 2.9 g/dL (2.4-3.5); Glucose 353 mg/dL (70-105); Potassium 4.3 mmol/L (3.5-5.1); Protein, Total 6.1 g/dL (6.0-8.3); Sodium 135 mmol/L (136-145)
== END 2023-07-25 20:40 | disposition home or self-care (01) ==
LOC: CSHERS 17:01
DX: E11.65 Type 2 diabetes mellitus with hyperglycemia (principal); I10 Essential (primary) hypertension; F17.210 Nicotine dependence, cigarettes, uncomplicated; I48.91 Unspecified atrial fibrillation; Z91.199 Patient's noncompliance with other medical treatment and regimen due to unspecified reason
CPT/HCPCS: 36415; 36416; 80053; 82805; 85025; 96360; 96361